=== PATIENT | female | born 1975 | race Caucasian/White ===

== ENCOUNTER 2018-10-13 09:07 | Emergency (ER) | payer MEDICARE, MEDICAID ==
[~2018-10-13] VITALS: Ht 152.4 cm; Wt 66.2 kg
--- OUTSIDE RECORDS SUMMARY | 2018-10-13 09:12 | XMS REPORT | CCD ---
Author Author CLAUDIA PAREDES Organization Unknown Address [address] [place] [address] Care Team Providers Care Latrine Cleaner Name Role Phone ARIAS, BRIDGET DO Attphys ARIAS, BRIDGET DO Prisurg Allergies Allergy Code Allergy Type Reaction Status MEPERIDINE 6754 Drug allergy Active CODEINE 2670 Drug allergy Active Active Medications Medication Code Dose Units Frequency Route Modification Start Date/Time Cipro 500MG Oral Tablet 033811 1 TABLET TWO TIMES A DAY BY MOUTH 02/20/2015 12:41 Prescription Detail 1 TABLET BY MOUTH TWO TIMES A DAY FOR 7 DAYS Problems Problem Code Start Date Resolved Date Status Suicidal ideation 3283615 11/02/2014 Active Intentional overdose of drug 76746341 11/02/2014 Active Procedures Procedure Code Procedure Type Date STREP SCREEN 50201592 SNOMED CT 05/17/2016 INFLUENZA A & B 074492742 SNOMED CT 05/17/2016 Results STREP SCREEN - Collect Date/Time: 05/17/2016 22:46 Test Name Code Test Result Test Units Test Ref Range STREP SCREEN 6556-5 NEGATIVE N/A NORMAL: NEGATIVE INFLUENZA A & B - Collect Date/Time: 05/17/2016 22:45 Test Name Code Test Result Test Units Test Ref Range INFLUENZA A & B 6437-8 NO INFLUENZA A OR B DETECTED N/A Function Status Unknown or Not Available. History of Immunizations Immunization Code Date Tdap 115 09/12/2009 Plan of Treatment Unknown or Not Available. Social History Smoking Status Code Start Date End Date Current every day smoker 994832953 Vital Signs Unknown or Not Available. Function Status Unknown or Not Available. Goals Unknown or Not Available. ASSESSMENTS Unknown or Not Available. Health Concerns Section Unknown or Not Available.
--- OUTSIDE RECORDS SUMMARY | 2018-10-13 09:12 | XMS REPORT | CCD ---
Author Author DAVID RENTERIA Organization Unknown Address [address] [place], [place] [address] Care Team Providers Care Corporate Affairs Manager Name Role Phone JESSICA WANG, ESTEFANIA Levy Attyolanda ESTEFANIA LOPEZ MD Vital Signs Unknown or Not Available. Allergies Allergy Code Allergy Type Reaction Status MEPERIDINE 6754 Drug allergy Active CODEINE 3927 Drug allergy Active Procedures Unknown or Not Available. History of Immunizations Immunization Code Date Tdap 115 09/12/2009 Problems Problem Code Start Date Resolved Date Status Suicidal ideation 5846264 11/02/2014 Active Intentional overdose of drug 38300605 11/02/2014 Active Results Unknown or Not Available. Active Medications Medication Code Dose Units Frequency Route Modification Start Date/Time Ativan 0.5MG Oral Tablet 281209 0.5 MILLIGRAMS DAILY ORAL 11/02/2014 12:44 Benadryl Allergy 25MG Oral Tablet 9699067 25 MILLIGRAMS DAILY ORAL 11/02/2014 12:44 Effexor XR 150MG Oral Capsule, Extended Release 375806 150 MILLIGRAMS DAILY ORAL 11/02/2014 12:44 Ibuprofen 800MG Oral Tablet 008977 800 MILLIGRAMS FOUR TIMES A DAY ORAL 11/02/2014 12:44 Latuda 20MG Oral Tablet 8349917 100 MILLIGRAMS DAILY ORAL 11/02/2014 12:44 Primidone 50MG Oral Tablet 096670 50 MILLIGRAMS TWO TIMES A DAY ORAL 11/02/2014 12:44 Ultram 50MG Oral Tablet 903509 50 MILLIGRAMS NEEDED ORAL 11/02/2014 12:44 Medications Administered During Visit Unknown or Not Available. Encounters Encounter Diagnosis Diagnosis Code Start Date [place] 8471 10/20/2014 Social History Smoking Status Code Start Date End Date Current every day smoker 412367144 Patient Decision Aids Unknown or Not Available. Discharge Instructions You were admitted to [facility] on 10/20/2014 with a principal diagnosis of [place]. You were discharged from [facility] on 10/20/2014. Should you have any questions prior to discharge, please contact a member of your healthcare team. If you have left the hospital and have any questions, please contact your primary care physician. Chief Complaint and Reason For Visit Chief Complaint Date of Onset BACK INJURY Function Status Unknown or Not Available. Referral/Transition of Care Unknown or Not Available.
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
--- OUTSIDE RECORDS SUMMARY | 2018-10-13 09:13 | XMS REPORT ---
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 Active 515441100 Problem Chronic liver failure without hepatic coma K72.10 Active 300123836 ALLERGIES No Information ENCOUNTERS Encounter Location Date Diagnosis [place] [id number] [address] Jan, [facility] [address] [address] Dec, Symptomatic premature menopause E28.310 [facility] [address] [place] [id number] [place] [address] Nov, [facility] [address] [place] [id number] [place] [address] Nov, [facility] [address] [address] Nov, PTSD (post-traumatic stress disorder) F43.10 and Partial blindness H54.7 [facility] [address] [address] Nov, [facility] [address] [address] Oct, [facility] [address] [address] Sep, [facility] [address] [facility] [id number] [place] [address] Sep, Establishing care with new doctor, encounter for Z76.89 ; History of lupus Z87.39 ; Screening cholesterol level Z13.220 ; Chronic liver failure without hepatic coma K72.10 and Environmental allergies Z91.09 [facility] [address] [facility] [id number] [place] [address] August, Encounter for immunization Z23 and Abscess, scalp L02.811 IMMUNIZATIONS No Known Immunizations SOCIAL HISTORY Never Assessed REASON FOR VISIT Requests return call PLAN OF CARE VITAL SIGNS MEDICATIONS Unknown [...]
--- OUTSIDE RECORDS SUMMARY | 2018-10-13 09:13 | XMS REPORT | CCD ---
Author Author ALVARO AGUIAR Organization Unknown Address [address] [place], [place] [address] Care Team Providers Care Narcotics Detective Name Role Phone CATRACHO GALEANA MD Attphys BERTHA KANDICE CORRALES Prisurg Vital Signs Vital Sign Value Unit Date/Time Recent/Initial? Weight Measured 130 lbs 02/18/2015 16:25 Initial VS Height 64 in 02/18/2015 16:25 Initial VS BMI (Body Mass Index) 22.31 kg/m^2 02/18/2015 16:25 Initial VS BSA (Body Surface Area) 1.63 m^2 02/18/2015 16:25 Initial VS BP Systolic 96 mmHg 02/18/2015 16:27 Initial VS BP Diastolic 69 mmHg 02/18/2015 16:27 Initial VS Respiratory Rate 20 bpm 02/18/2015 16:29 Initial VS Heart Rate 71 bpm 02/18/2015 16:29 Initial VS O2 % BldC Oximetry 95 % 02/18/2015 16:29 Initial VS Body Temperature 97.7 degrees 02/18/2015 16:56 Initial VS Weight Measured 136.7 lbs 02/20/2015 05:18 Most Recent VS Height 64 in 02/20/2015 05:18 Most Recent VS BMI (Body Mass Index) 23.46 kg/m^2 02/20/2015 05:18 Most Recent VS BSA (Body Surface Area) 1.67 m^2 02/20/2015 05:18 Most Recent VS BP Systolic 128 mmHg 02/20/2015 12:00 Most Recent VS BP Diastolic 75 mmHg 02/20/2015 12:00 Most Recent VS Respiratory Rate 18 bpm 02/20/2015 12:01 Most Recent VS Heart Rate 87 bpm 02/20/2015 12:01 Most Recent VS O2 % BldC Oximetry 98 % 02/20/2015 12:01 Most Recent VS Body Temperature 97 degrees 02/20/2015 12:01 Most Recent VS Allergies Allergy Code Allergy Type Reaction Status MEPERIDINE 6754 Drug allergy Active CODEINE 2670 Drug allergy Active Procedures Procedure Code Procedure Type Date ^CULTURE URINE IDENTIFICATION 231212521 SNOMED CT 02/18/2015 COMPREHENSIVE METABOLIC PANEL 253120442 SNOMED [address] 02/20/[address] 02/20/[address] 02/19/2015 COMPREHENSIVE METABOLIC PANEL 420514206 SNOMED CT 02/19/[address] 02/19/2015 .THC QUANT UR 620015910 SNOMED CT 02/18/2015 .BENZO QUANT UR 802083095 SNOMED CT 02/18/2015 .BARBITURATE CONFIRM 241514577 SNOMED CT 02/18/2015 .AMP EXPANDED CONF UR 998932674 SNOMED CT 02/18/2015 ^UA WITH MICRO 498242055 SNOMED CT 02/18/2015 CULTURE URINE 803280649 SNOMED CT 02/18/2015 ^CBC W/AUTO DIFF 7554724 SNOMED CT 02/18/[address] 02/18/[address] 02/18/[address] 02/18/[address] 02/18/2015 UA ROUTINE C&S IF IND 217230486 SNOMED CT 02/18/2015 RAPID DRUG SCREEN 408675184 SNOMED CT 02/18/[address] 02/18/2015 COMPREHENSIVE METABOLIC PANEL 402818840 SNOMED CT 02/18/2015 CBC W/ AUTO DIFF (RFLX MAN DIFF IF IND) 9616185 SNOMED CT 02/18/2015 ABG DRAW 63276226 SNOMED CT 02/18/2015 History of Immunizations Immunization Code Date Tdap 115 09/12/2009 Problems Problem Code Start Date Resolved Date Status Suicidal ideation 7968405 11/02/2014 Active Intentional overdose of drug 29700827 11/02/2014 Active Results COMPREHENSIVE METABOLIC PANEL - Collect Date/Time: 02/20/2015 05:05 Test Name Code Test Result Test Units Test Ref Range GLUCOSE 2345-7 79 MG/DL L=70 H=100 SODIUM 2951-2 135 MEQ/L L=135 H=148 POTASSIUM 2823-3 3.6 MEQ/L L=3.5 H=5.3 CHLORIDE 2075-0 112 MEQ/L L=96 H=110 CO2 2028-9 20 MEQ/L L=22 H=29 BUN 3094-0 5 MG/DL L=8 H=22 CREATININE 2160-0 0.6 MG/DL L=0.6 H=1.6 SGOT/AST 1920-8 17 IU/L L=10 H=40 SGPT/ALT 1742-6 13 IU/L L=8 H=54 ALK PHOS 6768-6 40 IU/L L=35 H=115 TOTAL PROTEIN 2885-2 4.7 G/DL L=5.5 H=8.5 ALBUMIN 1751-7 2.8 G/DL L=3.1 H=5.4 TOTAL BILI 1975-2 0.3 MG/DL L=0.0 H=1.5 CALCIUM 67120-8 7.3 MG/DL L=8.2 H=10.6 AGE 39 yrs GFR NonAA 111 GFR AA 135 eGFR >60 N/A eGFR AA* >60 N/A COMPREHENSIVE METABOLIC PANEL - Collect Date/Time: 02/19/2015 05:35 Test Name Code Test Result Test Units Test Ref Range GLUCOSE 2345-7 61 MG/DL L=70 H=100 SODIUM 2951-2 139 MEQ/L L=135 H=148 POTASSIUM 2823-3 3.4 MEQ/L L=3.5 H=5.3 CHLORIDE 2075-0 110 MEQ/L L=96 H=110 CO2 2028-9 23 MEQ/L L=22 H=29 BUN 3094-0 10 MG/DL L=8 H=22 CREATININE 2160-0 0.7 MG/DL L=0.6 H=1.6 SGOT/AST 1920-8 11 IU/L L=10 H=40 SGPT/ALT 1742-6 9 IU/L L=8 H=54 ALK PHOS 6768-6 38 IU/L L=35 H=115 TOTAL PROTEIN 2885-2 5.6 G/DL L=5.5 H=8.5 ALBUMIN 1751-7 3.5 G/DL L=3.1 H=5.4 TOTAL BILI 1975-2 0.2 MG/DL L=0.0 H=1.5 CALCIUM 11747-0 8.2 MG/DL L=8.2 H=10.6 AGE 39 yrs GFR NonAA 93 GFR AA 113 eGFR >60 N/A eGFR AA* >60 N/A COMPREHENSIVE METABOLIC PANEL - Collect Date/Time: 02/18/2015 09:20 Test Name Code Test Result Test Units Test Ref Range GLUCOSE 2345-7 145 MG/DL L=70 H=100 SODIUM 2951-2 138 MEQ/L L=135 H=148 POTASSIUM 2823-3 3.1 MEQ/L L=3.5 H=5.3 CHLORIDE 2075-0 107 MEQ/L L=96 H=110 CO2 2028-9 25 MEQ/L L=22 H=29 BUN 3094-0 6 MG/DL L=8 H=22 CREATININE 2160-0 0.8 MG/DL L=0.6 H=1.6 SGOT/AST 1920-8 13 IU/L L=10 H=40 SGPT/ALT 1742-6 8 IU/L L=8 H=54 ALK PHOS 6768-6 40 IU/L L=35 H=115 TOTAL PROTEIN 2885-2 6.0 G/DL L=5.5 H=8.5 ALBUMIN 1751-7 3.8 G/DL L=3.1 H=5.4 TOTAL BILI 1975-2 0.3 MG/DL L=0.0 H=1.5 CALCIUM 34390-8 8.5 MG/DL L=8.2 H=10.6 AGE 39 yrs GFR NonAA 80 GFR AA 97 eGFR >60 N/A eGFR AA* >60 N/A ACETAMINOPHEN - Collect Date/Time: 02/18/2015 09:20 Test Name Code Test Result Test Units Test Ref Range ACETAMINOPHEN 3298-7 <0.60 UG/ML ALCOHOL - Collect Date/Time: 02/18/2015 09:20 Test Name Code Test Result Test Units Test Ref Range ETHANOL 5640-8 <10 MG/DL RAPID DRUG SCREEN - Collect Date/Time: 02/18/2015 12:05 Test Name Code Test Result Test Units Test Ref Range Cannabinoids (THC) NON-NEGATIVE N/A NEG: < 50 ng/ml Phencyclidine (PCP) NEGATIVE N/A NEG: < 25 ng/ml Cocaine NEGATIVE N/A NEG: < 300 ng/ml Methamphetamine NON-NEGATIVE N/A NEG: < 1000 ng/ml Opiates NEGATIVE N/A NEG: < 300 ng/ml Amphetamine NON-NEGATIVE N/A NEG: < 1000 ng/ml Benzodiazepines NON-NEGATIVE N/A NEG: < 300 ng/ml Tricyclic Antidepres NEGATIVE N/A NEG: < 300 ng/ml Methadone NEGATIVE N/A NEG: < 300 ng/ml Barbiturates NON-NEGATIVE N/A NEG: < 200 ng/ml Oxycodone NEGATIVE N/A NEG: < 100 ng/ml Propoxyphene (PPX) NEGATIVE N/A NEG: < 300 ng/ml SALICYLATE - Collect Date/Time: 02/18/2015 09:20 Test Name Code Test Result Test Units Test Ref Range SALICYLATE 4023-8 <5.0 MG/DL L=0.0 H=45.0 CBC W/ AUTO DIFF (RFLX MAN DIFF IF IND) - Collect Date/Time: 02/18/2015 09:20 Test Name Code Test Result Test Units Test Ref Range WBC 95174-0 4.3 TH/CMM L=4.5 H=10.8 RBC 789-8 4.08 ML/CMM L=4.20 H=5.40 HGB 718-7 13.1 G/DL L=12.0 H=16.0 HCT 4544-3 38.3 % L=37.0 H=47.0 MCV 94 FL L=81 H=99 MCH 32.1 PG L=27.0 H=33.0 MCHC 34.2 G/DL L=31.0 H=36.0 RDW SD 47 FL L=36 H=50 RDW CV 13.4 % L=0.0 H=14.8 MPV 9.3 FL L=9.3 H=12.5 PLT 777-3 332 TH/CMM L=130 H=440 NRBC# 0.00 TH/CMM L=0.00 H=0.00 NRBC% 0.0 /100WBC L=0.0 H=2.0 %NEUT 56.1 % %LYMP 33.1 % %MONO 7.0 % %EOS 3.3 % %BASO 0.5 % #NEUT 2.41 TH/CMM L=2.10 H=8.20 #LYMP 1.42 TH/CMM L=0.90 H=5.20 #MONO 0.30 TH/CMM L=0.16 H=1.00 #EOS 0.14 TH/CMM L=0.00 H=0.80 #BASO 0.02 TH/CMM L=0.00 H=0.20 MANUAL DIFF NOT IND N/A HEMOGRAM - Collect Date/Time: 02/20/2015 05:05 Test Name Code Test Result Test Units Test Ref Range WBC 67149-5 7.0 TH/CMM L=4.5 H=10.8 RBC 789-8 3.44 ML/CMM L=4.20 H=5.40 HGB 718-7 11.0 G/DL L=12.0 H=16.0 HCT 4544-3 32.9 % L=37.0 H=47.0 MCV 96 FL L=81 H=99 MCH 32.0 PG L=27.0 H=33.0 MCHC 33.4 G/DL L=31.0 H=36.0 RDW SD 47 FL L=36 H=50 RDW CV 13.4 % L=0.0 H=14.8 MPV 9.7 FL L=9.3 H=12.5 PLT 777-3 274 TH/CMM L=130 H=440 NRBC# 0.00 TH/CMM L=0.00 H=0.00 NRBC% 0.0 /100WBC L=0.0 H=2.0 HEMOGRAM - Collect Date/Time: 02/19/2015 05:35 Test Name Code Test Result Test Units Test Ref Range WBC 43582-5 5.7 TH/CMM L=4.5 H=10.8 RBC 789-8 3.92 ML/CMM L=4.20 H=5.40 HGB 718-7 12.4 G/DL L=12.0 H=16.0 HCT 4544-3 37.2 % L=37.0 H=47.0 MCV 95 FL L=81 H=99 MCH 31.6 PG L=27.0 H=33.0 MCHC 33.3 G/DL L=31.0 H=36.0 RDW SD 47 FL L=36 H=50 RDW CV 13.5 % L=0.0 H=14.8 MPV 9.2 FL L=9.3 H=12.5 PLT 777-3 312 TH/CMM L=130 H=440 NRBC# 0.00 TH/CMM L=0.00 H=0.00 NRBC% 0.0 /100WBC L=0.0 H=2.0 UA ROUTINE C&S IF IND - Collect Date/Time: 02/18/2015 12:00 Test Name Code Test Result Test Units Test Ref Range COLOR YELLOW N/A NL: YELLOW APPEARANCE HAZY N/A NL: CLEAR SPEC GRAV 1.025 N/A NL: 1.002 - 1.022 pH 6.0 N/A NL: 5 - 9 PROTEIN TRACE N/A NL: NEGATIVE mg/dl GLUCOSE NEGATIVE N/A NL: NEGATIVE mg/dl KETONE NEGATIVE N/A NL: NEGATIVE mg/dl BILIRUBIN NEGATIVE N/A NL: NEGATIVE BLOOD NEGATIVE N/A NL: NEGATIVE NITRITE POSITIVE N/A NL: NEGATIVE LEUK SCREEN NEGATIVE N/A NL: NEGATIVE MICRO INDICATED? SEE BELOW N/A WBC/HPF 5-10 N/A NL: NEGATIVE RBC/HPF 0-5 N/A NL: NEGATIVE CASTS/LPF NEGATIVE N/A NL: NEGATIVE CRYSTALS NEGATIVE N/A NL: NEGATIVE MUCOUS THRDS 2++ N/A NL: NEGATIVE BACTERIA 3+++ N/A NL: NEGATIVE EPITH CELLS FEW SQUAMOUS N/A NL: NEGATIVE TRICHOMONAS NEGATIVE N/A NL: NEGATIVE YEAST NEGATIVE N/A NL: NEGATIVE CULT SET UP? YES N/A TEST - Collect Date/Time: 02/18/2015 09:20 Test Name Code Test Result Test Units Test Ref Range TEST 2117- NEGATIVE N/A ABG - Collect Date/Time: 02/18/2015 09:47 Test Name Code Test Result Test Units Test Ref Range PH 7.40 L=7.35 H=7.45 PCO2 37 mmHG L=35 H=45 PO2 82 mmHG L=80 H=100 HCO3 23 mmol/L L=22 H=28 TCO2 20 mmol/L L=18 H=31 O2SAT 96 % L=80 H=100 SITE RIGHT RADIAL N/A FIO2 ROOM AIR N/A BE -1.5 N/A L=-2.5 H=2.5 MAGNESIUM - Collect Date/Time: 02/19/2015 05:35 Test Name Code Test Result Test Units Test Ref Range MAGNESIUM 04741-8 2.2 MG/DL L=1.7 H=2.8 Active Medications Medication Code Dose Units Frequency Route Modification Start Date/Time Cipro 500MG Oral Tablet 519498 1 TABLET TWO TIMES A DAY BY MOUTH 02/20/2015 12:41 Prescription Detail 1 TABLET BY MOUTH TWO TIMES A DAY FOR 7 DAYS Medications Administered During Visit Medication Dose Units Frequency Route Date/Time of Last Dose NS 1000 ML IV [PREDEFINED] (7983) CONT IV IV 02/18/2015 16:38 POTASSIUM CHL [K DUR] TABLET: 20 MEQ 20 MEQ X1 PO 02/19/2015 08:51 NS 1000 ML IV [PREDEFINED] (7983) CONT IV IV 02/20/2015 06:30 ROCEPHIN IV [PREDEFINED]: 1GM IV Q 12 HR Q24H IVPB 02/19/2015 15:43 NS 1000 ML IV [PREDEFINED] (7983) X1 IV 02/19/2015 14:35 NS 1000 ML IV [PREDEFINED] (7983) X1 IV 02/19/2015 17:48 Encounters Encounter Diagnosis Diagnosis Code Start Date Poisoning by other antipsychotics and neuroleptics, intentional self-harm, initial encounter [id number] 02/18/2015 Social History Smoking Status Code Start Date End Date Current every day smoker 888473425 Patient Decision Aids Patient Decision Aid Adult Overdose Depression Poison Proofing Your Home Suicide Prevention for Adults Discharge Instructions You were admitted to [facility] on 02/18/2015 with a principal diagnosis of Poisoning by other antipsychotics and neuroleptics, intentional self-harm, initial encounter. You were discharged from [facility] on 02/20/2015. Should you have any questions prior to discharge, please contact a member of your healthcare team. If you have left the hospital and have any questions, please contact your primary care physician. HOME DIET: Regular. CONDITION AT DISMISSAL Stable. HOME MEDICATION INSTRUCTIONS: DON'T continue home meds, DR GALEANA TO EVALUATE MONDAY AM. PSYCHIATRIST TO EVALUATE ON February. HOME MEDS RETURNED TO PATIENT: HOME MEDS TAKEN BY SKIL WORKER/S.O. ON ADMISSION. ACTIVITY INSTRUCTIONS(list limitations): Activity as Tolerated. NEW PRESCRIPTS GIVEN TO PATIENT? Yes, for what?, CIPRO 500 MG BY MOUTH, TWICE A DAY, FOR 7 DAYS. FOLLOW UP CARE - SEE YOUR PHYSICIAN: You have appointment WITH DR GALEANA ON MondayFebruary AT 11:30 AM. You have appointment THERAPIST, JOSE HART, ON Feb AT 11:00 AM You have appointment THERAPIST, JOSE HART, MonFeb AT 11:00 AM. You have appointment WITH PSYCHIATRIST, DR VIDAL, MondayFeb AT 9:20 AM. FOLLOW-UP OUTPATIENT SERVICES: MENTAL HEALTH, INDIVIDUAL THERAPY. PRIMARY CARE PHYSICIAN OR PRACTITIONER: Catracho Galeana MD, /[phone]. CALL YOUR PHYSICIAN IF YOU EXPERIENCE: ANY THOUGHTS OF SUICIDE OR SELF HARM. NATIONAL SUICIDE PREVENTION HOTLINE NUMBER: PERSONAL ITEMS RETURNED: Yes. BRING DISCHARGE INST TO NEXT OFFICE VISIT Yes. DISCHARGE INSTRUCTIONS GIVEN TO: Patient, Paper Folder. VOICES UNDERSTANDING OF INSTRUCTIONS: Yes. INSTRUCTIONS GIVEN BY:(TYPE IN NAME AND DATE) OFELIA FLOREZ RN 02/20/15 SMOKING CESSATION: Smoking and second hand smoke is harmful, to your health.. Smoking has been linked to cancer, cardiac disease, COPD, and asthma.. For more information you can call:, 6-843-NLU-STOP, or 8-441-[facility].. A pamphlet on smoking was given to you, at admission.. CHIEF COMPLAINT: PATIENT PRESENTS TO ER VIA EMS WITH OVERDOSE ON ATIVAN, EFFEXOR AND LATUDA. Chief Complaint and Reason For Visit Chief Complaint Date of Onset OVERDOSE BIPOLAR DEPRESSION Function Status Unknown or Not Available. Plan of Care Unknown or Not Available. Referral/Transition of Care Unknown or Not Available.
--- OUTSIDE RECORDS SUMMARY | 2018-10-13 09:13 | XMS REPORT ---
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 Active 224050707 Problem Chronic liver failure without hepatic coma K72.10 Active 708138302 ALLERGIES Substance Reaction Event Type Date Status Demerol Unknown Drug Allergy August, Active Codeine Sulfate Unknown Drug Allergy August, Active SOCIAL HISTORY Never Assessed PLAN OF CARE VITAL SIGNS Height 60 in 2016-09-14 Weight 144.8 lbs 2016-09-14 Temperature 99.4 degrees Fahrenheit 2016-09-14 Heart Rate 76 bpm 2016-09-14 Respiratory Rate 22 2016-09-14 BMI 28.28 kg/m2 2016-09-14 Blood pressure systolic 120 mmHg 2016-09-14 Blood pressure diastolic 68 mmHg 2016-09-14 MEDICATIONS Medication Instructions Dosage Frequency Start Date End Date Duration Status Benadryl Allergy 25 MG Orally every 8 hrs 1 tablet as needed 8h Active Bactrim DS 800-160 MG Orally Twice a day 1 tablet 12h August, Sep, 10 day(s) Active Tylenol 325 MG Orally every 6 hrs 2 tablets as needed 6h Active RESULTS No Results PROCEDURES Procedure Date Ordered Result Body Site [facility] VISIT ESTABLISHED PATIENT September 14, 2016 SINGLE IMMUNIZATION ADMIN September 14, 2016 TDAP (BOOSTRIX) September 14, 2016 IMMUNIZATIONS Vaccine Route Administration Date Status TDAP (BOOSTRIX) IM Intramuscular September 14, 2016 Administered MEDICAL (GENERAL) HISTORY Type Description Date Medical [...] and in the hospital for 5 months 2006
--- OUTSIDE RECORDS SUMMARY | 2018-10-13 09:13 | XMS REPORT ---
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 Active 154741645 Problem Chronic liver failure without hepatic coma K72.10 Active 751450055 ALLERGIES No Information ENCOUNTERS Encounter Location Date Diagnosis [place] [address] [address] Jan, [facility] [address] [address] Dec, Symptomatic premature menopause E28.310 [facility] [address] [place] [id number] [place] [address] Nov, [facility] [address] [place] [place] [id number] [place] [address] Nov, [facility] [address] [address] Nov, PTSD (post-traumatic stress disorder) F43.10 and Partial blindness H54.7 [facility] [address] [address] Nov, [facility] [address] [address] Oct, [facility] [address] [address] Sep, [facility] [address] [facility] [id number] [place] [address] Sep, Establishing care with new doctor, encounter for Z76.89 ; History of lupus Z87.39 ; Screening cholesterol level Z13.220 ; Chronic liver failure without hepatic coma K72.10 and Environmental allergies Z91.09 [facility] [address] [facility] [id number] [place] [address] August, Encounter for immunization Z23 and Abscess, scalp L02.811 IMMUNIZATIONS No Known Immunizations SOCIAL HISTORY Never Assessed REASON FOR VISIT medication PLAN OF CARE VITAL SIGNS MEDICATIONS Medication Instructions Dosage Frequency Start Date End Date Duration Status Chantix 1 MG Orally Twice a day 1 tablet 12h 06 Dec, 2016 Active RESULTS No Results PROCEDURES No Known procedures [...]
--- OUTSIDE RECORDS SUMMARY | 2018-10-13 09:13 | XMS REPORT ---
Author Author GABRIEL ROSALES [facility] Address [address] [place] [address] Care Team Providers Care Shipper Name Role Phone GABRIEL ROSALES Unavailable PROBLEMS Type Condition ICD9-CM Code WCB67-NQ Code Onset Dates Condition Status SNOMED Code Problem Symptomatic premature menopause E28.310 Active 839173168 Problem PTSD (post-traumatic stress disorder) F43.10 Active 87203240 Problem Environmental allergies Z91.09 Active 462904561 Problem Partial blindness H54.7 Active 831378393 Problem Chronic liver failure without hepatic coma K72.10 Active 233299347 ALLERGIES No Information ENCOUNTERS Encounter Location Date Diagnosis [facility] [address] [address] Jan, [facility] [address] [place] [id number] [place] [address] Dec, Symptomatic premature menopause E28.310 [facility] [address] [place] [id number] [place] [address] Nov, [facility] [address] [place] [id number] [place] [address] Nov, [facility] [address] [address] Nov, PTSD (post-traumatic stress disorder) F43.10 and Partial blindness H54.7 [facility] [address] [address] Nov, [facility] [address] [place] [id number] [place] [address] Oct, [facility] [address] [address] Sep, [facility] [address] [facility] [id number] [place] [address] Sep, Establishing care with new doctor, encounter for Z76.89 ; History of lupus Z87.39 ; Screening cholesterol level Z13.220 ; Chronic liver failure without hepatic coma K72.10 and Environmental allergies Z91.09 [facility] [address] [facility] [id number] [place] [address] August, Encounter for immunization Z23 and Abscess, scalp L02.811 IMMUNIZATIONS No Known Immunizations SOCIAL HISTORY Never Assessed REASON FOR VISIT Medical Testing supplies PLAN OF CARE VITAL SIGNS MEDICATIONS Unknown [...]
--- OUTSIDE RECORDS SUMMARY | 2018-10-13 09:13 | XMS REPORT ---
Author Author GISSEL Broussard Organization [facility] Address [address] [place] [address] Care Team Providers Care Level Vial Grinder Name Role Phone joseADALBERTO GISSEL Unavailable PROBLEMS Type Condition ICD9-CM Code XNA65-LZ Code Onset Dates Condition Status SNOMED Code Problem Symptomatic premature menopause E28.310 Active 929277854 Problem PTSD (post-traumatic stress disorder) F43.10 Active 20613352 Problem Environmental allergies Z91.09 Active 049821723 Problem Partial blindness H54.7 Active 859231226 Problem Chronic liver failure without hepatic coma K72.10 Active 026974209 ALLERGIES No Information ENCOUNTERS Encounter Location Date Diagnosis [place] [address] [address] Jan, [facility] [address] [address] Dec, Symptomatic premature menopause E28.310 [facility] [address] [place] [id number] [place] [address] Nov, [facility] [address] [place] [id number] [place] [address] Nov, [facility] [address] [address] Nov, PTSD (post-traumatic stress disorder) F43.10 and Partial blindness H54.7 [facility] [address] [address] Nov, [facility] [address] [address] Oct, [facility] [address] [address] Sep, [facility] [address] [facility] [id number] [place] [address] Sep, Establishing care with new doctor, encounter for Z76.89 ; History of lupus Z87.39 ; Screening cholesterol level Z13.220 ; Chronic liver failure without hepatic coma K72.10 and Environmental allergies Z91.09 [facility] [address] [facility] [id number] [place] [address] August, Encounter for immunization Z23 and Abscess, [...]
--- OUTSIDE RECORDS SUMMARY | 2018-10-13 09:13 | XMS REPORT ---
Author Author GABRIEL ROSALES [facility] Address [address] [place] [address] Care Team Providers Care Churn Driller Name Role Phone GABRIEL ROSALES Unavailable PROBLEMS Type Condition ICD9-CM Code LET31-FD Code Onset Dates Condition Status SNOMED Code Problem Symptomatic premature menopause E28.310 Active 973539269 Problem PTSD (post-traumatic stress disorder) F43.10 Active 01929421 Problem Environmental allergies Z91.09 Active 578934798 Problem Partial blindness H54.7 Active 688874488 Problem Chronic liver failure without hepatic coma K72.10 Active 631490421 ALLERGIES Substance Reaction Event Type Date Status Demerol Unknown Drug Allergy Dec, Active Codeine Sulfate Unknown Drug Allergy Dec, Active ENCOUNTERS Encounter Location Date Diagnosis [facility] [address] [place] [id number] [place] [address] Jan, [facility] [address] [address] Dec, Symptomatic premature menopause E28.310 [facility] [address] [place] [id number] [place] [address] Nov, [facility] [address] [place] [id number] [place] [address] Nov, [facility] [address] [place] [id number] [place] [address] Nov, PTSD (post-traumatic stress disorder) F43.10 and Partial blindness H54.7 [facility] [address] [address] Nov, [facility] [address] [place] [id number] [place] [address] Oct, [facility] [address] [facility] [id number] [place] [address] Sep, [facility] [address] [facility] [id number] [address] Sep, Establishing care with new doctor, encounter for Z76.89 ; History of lupus Z87.39 ; Screening cholesterol level Z13.220 ; Chronic liver failure without hepatic coma K72.10 and Environmental allergies Z91.09 [facility] [address] [facility] [id number] [address] August, Encounter for immunization Z23 and Abscess, scalp L02.811 IMMUNIZATIONS No Known Immunizations SOCIAL HISTORY Never Assessed REASON FOR VISIT Vaginal bleeding, irregular--tcuppettRN, Having a period that lasts only one day x 4-5 months PLAN OF CARE Activity Details Follow Up prn Reason: VITAL SIGNS Height 62.25 in 2017-01-09 Weight 145.4 lbs 2017-01-09 Temperature 98.4 degrees Fahrenheit 2017-01-09 Heart Rate 70 bpm 2017-01-09 Respiratory Rate 18 2017-01-09 BMI 26.38 kg/m2 2017-01-09 Blood pressure systolic 122 mmHg 2017-01-09 Blood pressure diastolic 78 mmHg 2017-01-09 MEDICATIONS Medication Instructions Dosage Frequency Start Date End Date Duration Status Remeron 30 MG 1 tablet at bedtime 24h Active BuSpar 15 mg by oral route 3 times a day 1 capsule 8h Active Chantix 1 MG Orally Twice a day 1 tablet 12h 06 Dec, 2016 Active Prazosin HCl 2 MG Orally Once a day 2 capsule at bedtime 24h Active RESULTS Name Result Date Reference Range PROLACTIN 2017-01-09 Prolactin 7.4 4.8-23.3 THYROID ANALYZER 2017-01-09 TSH 1.230 0.450-4.500 FSH, SERUM 2017-01-09 FSH 3.5 PROCEDURES Procedure Date Ordered Result Body Site LAB NOT BILLED BY [facility] Jan 09, 2017 [facility] VISIT ESTABLISHED PATIENT Jan 09, 2017 SOFÍA DOUGHERTY* Jan 09, 2017 INSTRUCTIONS MEDICATIONS ADMINISTERED No Known Medications MEDICAL [...]
--- OUTSIDE RECORDS SUMMARY | 2018-10-13 09:13 | XMS REPORT ---
Author Author GISSEL Broussard Organization [facility] Address [address] [place] [address] Care Team Providers Care Manufacturing Test Engineer Name Role Phone joseADALBERTO GISSEL Unavailable PROBLEMS Type Condition ICD9-CM Code VOT60-KF Code Onset Dates Condition Status SNOMED Code Problem Symptomatic premature menopause E28.310 Active 678669987 Problem PTSD (post-traumatic stress disorder) F43.10 Active 54773469 Problem Environmental allergies Z91.09 Active 567226972 Problem Partial blindness H54.7 Active 820919389 Problem Chronic liver failure without hepatic coma K72.10 Active 050295777 ALLERGIES No Information ENCOUNTERS Encounter Location Date Diagnosis [place] [address] [address] Jan, [facility] [address] [address] Dec, Symptomatic premature menopause E28.310 [facility] [address] [place] [id number] [place] [address] Nov, [facility] [address] [place] [id number] [place] [address] Nov, [facility] [address] [address] Nov, PTSD (post-traumatic stress disorder) F43.10 and Partial blindness H54.7 [facility] [address] [address] Nov, [facility] [address] [address] Oct, [facility] [address] [address] Sep, [facility] [address] [facility] [id number] [place] [address] Sep, Establishing care with new doctor, encounter for Z76.89 ; History of lupus Z87.39 ; Screening cholesterol level Z13.220 ; Chronic liver failure without hepatic coma K72.10 and Environmental allergies Z91.09 [facility] [address] [facility] [id number] [place] [address] August, Encounter for immunization Z23 and Abscess, scalp L02.811 IMMUNIZATIONS No Known Immunizations SOCIAL HISTORY Never Assessed REASON FOR VISIT order- FYI PLAN OF CARE VITAL SIGNS MEDICATIONS Unknown [...]
--- OUTSIDE RECORDS SUMMARY | 2018-10-13 09:13 | XMS REPORT ---
Author Author GISSEL Broussard Organization [facility] Address [address] [place] [address] Care Team Providers Care Marketing Content Specialist Name Role Phone GISSEL Broussard Unavailable PROBLEMS Type Condition ICD9-CM Code VRO40-HC Code Onset Dates Condition Status SNOMED Code Problem Symptomatic premature menopause E28.310 Active 374223014 Problem PTSD (post-traumatic stress disorder) F43.10 Active 75443039 Problem Environmental allergies Z91.09 Active 231318315 Problem Partial blindness H54.7 Active 172555627 Problem Chronic liver failure without hepatic coma K72.10 Active 054727253 ALLERGIES Substance Reaction Event Type Date Status Demerol Unknown Drug Allergy Sep, Active Codeine Sulfate Unknown Drug Allergy Sep, Active ENCOUNTERS Encounter Location Date Diagnosis [facility] [address] [address] Jan, [facility] [address] [address] Dec, Symptomatic premature menopause E28.310 [facility] [address] [place] [id number] [place] [address] Nov, [facility] [address] [place] [id number] [place] [address] Nov, [facility] [address] [address] Nov, PTSD (post-traumatic stress disorder) F43.10 and Partial blindness H54.7 [facility] [address] [address] Nov, [facility] [address] [address] Oct, [facility] [address] [facility] [id number] [place] [address] Sep, [facility] [address] [facility] [id number] [place] [address] Sep, Establishing care with new doctor, encounter for Z76.89 ; History of lupus Z87.39 ; Screening cholesterol level Z13.220 ; Chronic liver failure without hepatic coma K72.10 and Environmental allergies Z91.09 [facility] [address] [facility] [id number] [place] [address] August, Encounter for immunization Z23 and Abscess, scalp L02.811 IMMUNIZATIONS No Known Immunizations SOCIAL HISTORY Never Assessed REASON FOR VISIT Establish Care, PT moved to [facility] a month ago and currently lives in a domestic v iolence assisted, She has liver malfunctions and was in a kaleb, also has lupus- S vinicio BRENNAN PLAN OF CARE Activity Details Follow Up 4 Weeks Reason:lupus and liver issues VITAL SIGNS Height 62.25 in 2016-10-06 Weight 126.7 lbs 2016-10-06 Temperature 98.1 degrees Fahrenheit 2016-10-06 Heart Rate 82 bpm 2016-10-06 Respiratory Rate 20 2016-10-06 BMI 22.99 kg/m2 2016-10-06 Blood pressure systolic 128 mmHg 2016-10-06 Blood pressure diastolic 76 mmHg 2016-10-06 MEDICATIONS Medication Instructions Dosage Frequency Start Date End Date Duration Status Zyrtec Allergy Active RESULTS Name Result Date Reference Range LUPUS PROFILE B 2016-10-06 Complement C4, Serum 20 14-44 Complement C3, Serum 116 82-167 Anti-DNA (DS) Ab Qn 1 0-9 Antichromatin Antibodies <0.2 0.0-0.9 LETICIA Direct Negative Negative CBC 2016-10-06 WBC 7.4 3.4-10.8 RBC 3.99 3.77-5.28 Hemoglobin 12.6 11.1-15.9 Hematocrit 38.1 34.0-46.6 MCV 96 79-97 MCH 31.6 26.6-33.0 MCHC 33.1 31.5-35.7 RDW 13.5 12.3-15.4 Platelets 440 150-379 Neutrophils 52 Lymphs 38 Monocytes 7 Eos 2 Basos 0 Neutrophils (Absolute) 3.8 1.4-7.0 Lymphs (Absolute) 2.8 0.7-3.1 Monocytes(Absolute) 0.6 0.1-0.9 Eos (Absolute) 0.2 0.0-0.4 Baso (Absolute) 0.0 0.0-0.2 Immature Granulocytes 1 Immature Grans (Abs) 0.0 0.0-0.1 LIPID PANEL 2016-10-06 Cholesterol, Total 206 100-199 Triglycerides 66 0-149 HDL Cholesterol 70 >39 VLDL Cholesterol Homero 13 5-40 LDL Cholesterol Calc 123 0-99 CMP 2016-10-06 Glucose, Serum 75 65-99 BUN 17 6-24 Creatinine, Serum 0.81 0.57-1.00 eGFR If NonAfricn Am 91 >59 eGFR If Africn Am 105 >59 BUN/Creatinine Ratio 21 9-23 Sodium, Serum 140 134-144 Potassium, Serum 4.2 3.5-5.2 Chloride, Serum 102 96-106 Carbon Dioxide, Total 22 18-29 Calcium, Serum 8.9 8.7-10.2 Protein, Total, Serum 6.7 6.0-8.5 Albumin, Serum 4.1 3.5-5.5 Globulin, Total 2.6 1.5-4.5 A/G Ratio 1.6 1.2-2.2 Bilirubin, Total <0.2 0.0-1.2 Alkaline Phosphatase, S 56 39-117 AST (SGOT) 17 0-40 ALT (SGPT) 27 0-32 PROCEDURES Procedure Date Ordered Result Body Site LAB [facility] October 06, 2016 LUPUS ACTIVITY PANEL (29223 X 2) October 06, 2016 [facility] VISIT ESTABLISHED PATIENT October 06, 2016 VENIPUNCT, ROUTINE* October 06, 2016 INSTRUCTIONS MEDICATIONS ADMINISTERED No Known Medications MEDICAL [...]
--- OUTSIDE RECORDS SUMMARY | 2018-10-13 09:14 | XMS REPORT | Continuity of Care Document ---
Author Organization Unknown Address Unknown Allergies There is no data. Medications There is no data. Problems There is no data. Procedures There is no data. Results Test Result Range CBC With Differential/Platelet - 10/06/16 14:34 WBC 7.4 x10E3/uL 3.4-10.8 RBC 3.99 x10E6/uL 3.77-5.28 Hemoglobin 12.6 g/dL 11.1-15.9 Hematocrit 38.1 % 34.0-46.6 MCV 96 fL 79-97 MCH 31.6 pg 26.6-33.0 MCHC 33.1 g/dL 31.5-35.7 RDW 13.5 % 12.3-15.4 Platelets 440 x10E3/uL 150-379 Neutrophils 52 % Lymphs 38 % Monocytes 7 % Eos 2 % Basos 0 % Neutrophils (Absolute) 3.8 x10E3/uL 1.4-7.0 Lymphs (Absolute) 2.8 x10E3/uL 0.7-3.1 Monocytes(Absolute) 0.6 x10E3/uL 0.1-0.9 Eos (Absolute) 0.2 x10E3/uL 0.0-0.4 Baso (Absolute) 0.0 x10E3/uL 0.0-0.2 Immature Granulocytes 1 % Immature Grans (Abs) 0.0 x10E3/uL 0.0-0.1 Comp. Metabolic Panel (14) - 10/06/16 14:34 Glucose, Serum 75 mg/dL 65-99 BUN 17 mg/dL 6-24 Creatinine, Serum 0.81 mg/dL 0.57-1.00 eGFR If NonAfricn Am 91 mL/min/1.73 >59 eGFR If Africn Am 105 mL/min/1.73 >59 BUN/Creatinine Ratio 21 9-23 Sodium, Serum 140 mmol/L 134-144 Potassium, Serum 4.2 mmol/L 3.5-5.2 Chloride, Serum 102 mmol/L 96-106 Carbon Dioxide, Total 22 mmol/L 18-29 Calcium, Serum 8.9 mg/dL 8.7-10.2 Protein, Total, Serum 6.7 g/dL 6.0-8.5 Albumin, Serum 4.1 g/dL 3.5-5.5 Globulin, Total 2.6 g/dL 1.5-4.5 A/G Ratio 1.6 1.2-2.2 Bilirubin, Total <0.2 mg/dL 0.0-1.2 Alkaline Phosphatase, S 56 IU/L 39-117 AST (SGOT) 17 IU/L 0-40 ALT (SGPT) 27 IU/L 0-32 Lipid Panel - 10/06/16 14:34 Cholesterol, Total 206 mg/dL 100-199 Triglycerides 66 mg/dL 0-149 HDL Cholesterol 70 mg/dL >39 VLDL Cholesterol Homero 13 mg/dL 5-40 LDL Cholesterol Calc 123 mg/dL 0-99 Systemic Lupus Profile B - 10/06/16 14:34 Anti-DNA (DS) Ab Qn 1 IU/mL 0-9 LETICIA Direct Negative Negative Antichromatin Antibodies <0.2 AI 0.0-0.9 Complement C4, Serum 20 mg/dL 14-44 Complement C3, Serum 116 mg/dL 82-167 FSH, Serum - 01/09/17 15:34 FSH 3.5 mIU/mL Prolactin - 01/09/17 15:34 Prolactin 7.4 ng/mL 4.8-23.3 Thyroid Carter Profile - 01/09/17 15:34 TSH 1.230 uIU/mL 0.450-4.500 PROLACTIN - 01/09/17 15:34 Prolactin 7.4 ng/mL 4.8-23.3 THYROID ANALYZER - 01/09/17 15:34 TSH 1.230 uIU/mL 0.450-4.500 FSH, SERUM - 01/09/17 15:34 FSH 3.5 mIU/mL NRG Encounters ACCT No. Visit Date/Time Discharge Status Pt. Type Provider Facility Loc./Unit Complaint [id number] 06/13/2015 11:41:39 06/13/2015 23:59:59 CLS Outpatient Hina Deng [id number] 05/06/2015 11:57:30 05/06/2015 23:59:59 CLS Outpatient Beth Pruitt [id number] 01/12/2015 18:44:42 01/12/2015 23:59:59 CLS Outpatient Hina Deng [id number] 03/05/2014 11:26:05 03/05/2014 23:59:59 CLS Outpatient Horace Buhs [id number] 01/10/2017 12:08:00 Document Registration [id number] 01/09/2017 15:00:00 01/09/2017 23:59:59 CLS Outpatient GISSEL CAVANAUGH [facility] [id number] 01/09/2017 15:00:00 Document Registration [id number] 10/07/2016 14:10:00 Document Registration
[2018-10-13] MEDS ORDERED: BUSPIRONE 15 MG (09:22)
[2018-10-13] MEDS ORDERED: PRAZOSIN 2 MG (09:22)
[2018-10-13] MEDS ORDERED: TRAZODONE 50MG TABLETS (09:22)
[2018-10-13] MEDS ORDERED: DESVENLAFAXINE (09:22)
[2018-10-13] MEDS ORDERED: KETOROLAC 60 MG/2 ML VIAL IM STA (11:23)
[2018-10-13] MEDS ORDERED: AMOXICILLIN 500 MG (POLYMOX) CAP PO STA (11:23)
[2018-10-13] MEDS ORDERED: HURRICAINE EXT TUBE (BENZOCAINE) ONE (11:29)
[2018-10-13] MEDS ORDERED: HYDROcodone/APAP 7.5 MG/325 MG (LORTAB, LORCET PLUS) TABLET PO ONE (11:30)
[2018-10-13] MEDS ORDERED: LIDOCAINE 2% VISCOUS 15 ML UDC PO ONE (11:30)
--- NOTE | 2018-10-13 11:37 | ED EENT ---
History of Present Illness General Chief Complaint: Dental Problems/Pain Stated Complaint: DENTAL PAIN Nursing Triage Note: PT AMB TO [facility] WITH COMPLAINT OF RIGHT SIDED FACIAL SWELLING AND BROKEN TOOTH. STATES SHE BROKE A TOOTH LAST WEEK AND HAS APPT FOR DENTIST ON MONDAY. STATES SHE STARTED SWELLING YESTERDAY AND WAS TOLD BY DENTIST TO COME TO ER IF WORSENS. Source: patient Exam Limitations: no limitations History of Present Illness Date Seen by Provider: Oct 13, 2018 Time Seen by Provider: 11:07 Initial Comments Here with complaint of right lower jaw pain posterior or she has a broken tooth on the first molar. She broke the tooth last week. She does have a dental appoi ntment next week. Noted swelling over the last 24-48 hours with markedly increasing pain. She states Tylenol and ibuprofen are not helping. She is concerned about infection. Timing/Duration: gradual Severity: moderate Prearrival Treatment: over the counter meds Associated Symptoms: facial pain/swelling; No sore throat; tooth pain Allergies and Home Medications Allergies Coded Allergies: No Known Drug Allergies (Unverified , 10/13/18) Patient Home Medication List Home Medication List Reviewed: Yes Review of Systems Review of Systems Constitutional: see HPI; No chills, No fever Eyes: No Symptoms Reported Ears: No Symptoms Reported Nose: no symptoms reported Mouth: pain, swelling Throat: no symptoms reported Respiratory: no symptoms reported Cardiovascular: no symptoms reported Skin: see HPI, change in color, lumps Past Pmjuzcz-Koaqqz-Xgvgxt Hx Past Med/Social Hx: Reviewed Nursing Past Med/Soc Hx Patient Social History Alcohol Use: Occasionally Uses Recreational Drug Use: No Smoking Status: Current Everyday Smoker Type Used: Cigarettes Recent Foreign Travel: No Contact w/Someone Who Travel: No Recent Infectious Disease Expo: No Recent Hopitalizations: No Immunizations Up To Date Tetanus Booster (TDap): Unknown Seasonal Allergies Seasonal Allergies: No Past Medical History Surgeries: Yes (CERVIX) Appendectomy, Gallbladder Respiratory: No Cardiac: No Neurological: No Genitourinary: No Gastrointestinal: No Musculoskeletal: No Endocrine: No HEENT: No Cancer: No Psychosocial: Yes Anxiety, PTSD, Depression Integumentary: No Family Medical History Reviewed Nursing Family Hx No Pertinent Family Hx Physical Exam Vital Signs Vital Signs - First Documented 10/13/18 09:15 Temp 96.0 Pulse 85 Resp 17 B/P (MAP) 142/87 (105) Pulse Ox 97 O2 Delivery Room Air Height, Weight, BMI Height: 5'0" Weight: 146lbs. oz. 66.854444hd; BMI Method:Stated General Appearance: WD/WN, no apparent distress Nose: normal inspection; No active bleeding, No discharge Mouth/Throat: pharynx normal, dental tenderness, mandibular swelling, other (pressure tooth to the first molar right lower and dental carry to the second molar. Dental tenderness as well as tenderness to the gum surrounding that area with redness.) Neck: full range of motion, supple Cardiovascular: regular rate, rhythm, no murmur Respiratory: lungs clear, normal breath sounds Neurologic/Psychiatric: alert, oriented x 3 Skin: warm/dry, other (swelling to the right lower jaw posterior aspect.) Progress/Results/Core Measures Results/Orders My Orders Orders - LUMA POTTER MD Toradol 60 Mg Im (10/13/18 11:23) Lidocaine 2% Viscous 15 Ml (Xylocaine Vi (10/13/18 11:30) Hydrocodone/Apap 7.5/325 Tab (Lortab 7. (10/13/18 11:30) Amoxicillin 1000mg Po (10/13/18 11:23) Vital Signs/I&O 10/13/18 09:15 Temp 96.0 Pulse 85 Resp 17 B/P (MAP) 142/87 (105) Pulse Ox 97 O2 Delivery Room Air Blood Pressure Mean: 105 Progress Progress Note : Progress Note Seen and evaluated. Toradol 60 mg IM, hydrocodone 7.5/325 one tab by mouth. Amoxicillin 1000 mg by mouth. Topical lidocaine solution given. Discharged home with return precautions. Patient verbalize understanding instructions and agreement with plan. Departure Impression Primary Impression: Dental caries Additional Impression: Dental abscess Disposition: 01 HOME, SELF-CARE Condition: Stable Departure-Patient Inst. Decision time for Depature: 11:40 Referrals: NO,LOCAL PHYSICIAN (PCP/Family) Primary Care Physician Patient Instructions: Dental Pain (DC), Tooth Abscess (DC) Add. Discharge Instructions: All discharge instructions reviewed with patient and/or family. Voiced underst anding. You may take ibuprofen 800 mg every 8 hours as needed for pain. Take prescribed pain medicine as directed. If you're not taking the prescribed pain medicine, you may take Tylenol/acetaminophen, 1000 mg every 8 hours as needed for pain. Do not take with prescribed pain medicine as they both have acetaminophen in them. Use topical numbing medicine once 12 to area of concern every one to 2 hours as needed for pain. Try not to swallow juice as this may numb the throat some. This is not dangerous but may be irritating. Follow-up with your dentist as scheduled. Return for worse pain, fever, vomiting, weakness, breathing problems or other concerns as needed. You may gargle with salt water 2 or 3 times daily to help reduce infection as well. Scripts Hydrocodone Bit/Acetaminophen (Hydrocodone/Acetaminophen 5/325mg Tablet) 1 Tab Tab 1 EACH PO Q4-6HR PRN for PAIN-MODERATE MDD 10 for 3 Days, #10 TAB Prov: LUMA POTTER MD 10/13/18 Amoxicillin (Amoxicillin) 500 Mg Capsule 500 MG PO TID, #21 CAP 0 Refills Prov: LUMA POTTER MD 10/13/18 LUMA POTTER MD Oct 13, 2018 11:37
[2018-10-13] MEDS ORDERED: AMOX500C2 PO (11:44)
[2018-10-13] MEDS ORDERED: ACHD5005 PO (11:44)
[2018-10-13 11:59] VITALS: BP 145/82
== END 2018-10-13 11:59 | disposition home or self-care (01) ==
LOC: EDUNIT# 09:07 → ER 09:09
DX: K04.7 Periapical abscess without sinus (principal); K02.9 Dental caries, unspecified; F43.10 Post-traumatic stress disorder, unspecified; F41.9 Anxiety disorder, unspecified; F17.210 Nicotine dependence, cigarettes, uncomplicated; Z90.49 Acquired absence of other specified parts of digestive tract
CPT/HCPCS: 99284

== ENCOUNTER 2018-12-14 21:26 | Emergency (ER) | payer MEDICARE, MEDICAID ==
[~2018-12-14] VITALS: Ht 152.4 cm; Wt 62.6 kg
[~2018-12-14 21:26] MED LIST: ACHD5005 PO; AMOX500C2 PO; BUSPIRONE 15 MG; DESVENLAFAXINE; PRAZOSIN 2 MG; TRAZODONE 50MG TABLETS
--- NOTE | 2018-12-14 21:43 | ED Lower Extremity ---
General Stated Complaint: R FOOT TOE PAIN Source: patient Exam Limitations: no limitations History of Present Illness Date Seen by Provider: Dec 14, 2018 Time Seen by Provider: 21:41 Initial Comments To ER with right great toe pain after dropping a shelf on it at about 4 PM. Onset: this evening Severity: moderate Pain/Injury Location: right 1st toe Method of Injury: direct blow Modifying Factors: Worse With Movement Allergies and Home Medications Allergies Coded Allergies: No Known Drug Allergies (Unverified , 10/13/18) Home Medications Amoxicillin 500 Mg Capsule, 500 MG PO TID Prescribed by: LUMA POTTER on 10/13/18 1144 Cephalexin 500 Mg Capsule, 500 MG PO TID Prescribed by: PILAR WILLIS on 12/14/18 2200 Hydrocodone Bit/Acetaminophen 1 Tab Tab, 1 EACH PO Q4-6HR PRN for PAIN-MODERATE Prescribed by: LUMA POTTER on 10/13/18 1144 Patient Home Medication List Home Medication List Reviewed: Yes Review of Systems Constitutional: see HPI EENTM: see HPI Respiratory: no symptoms reported Cardiovascular: no symptoms reported Genitourinary: no symptoms reported Musculoskeletal: see HPI Skin: no symptoms reported Psychiatric/Neurological: No Symptoms Reported Past Aejldec-Cxbaky-Pcjnws Hx Patient Social History Type Used: Cigarettes Recent Foreign Travel: No Contact w/Someone Who Travel: No Recent Hopitalizations: No Immunizations Up To Date Tetanus Booster (TDap): Unknown Seasonal Allergies Seasonal Allergies: No Past Medical History Surgeries: Yes (CERVIX) Appendectomy, Gallbladder Respiratory: No Cardiac: No Neurological: No Genitourinary: No Gastrointestinal: No Musculoskeletal: No Endocrine: No HEENT: No Cancer: No Psychosocial: Yes Anxiety, PTSD, Depression Integumentary: No Family Medical History No Pertinent Family Hx Physical Exam Vital Signs Vital Signs - First Documented 12/14/18 21:33 Temp 98.1 Pulse 94 Resp 18 B/P (MAP) 115/74 (88) Pulse Ox 97 O2 Delivery Room Air Capillary Refill : Height, Weight, BMI Height: 5'0" Weight: 146lbs. oz. 66.645534sk; BMI Method:Stated General Appearance: WD/WN, no apparent distress HEENT: PERRL/EOMI, normal ENT inspection Respiratory: no respiratory distress, no accessory muscle use Hips: bilateral hip non-tender, bilateral hip normal inspection, bilateral hip normal range of motion Legs: bilateral leg non-tender, bilateral leg normal inspection, bilateral leg normal range of motion Knees: bilateral knee non-tender, bilateral knee normal inspection, bilateral knee normal range of motion Ankles: bilateral ankle non-tender, bilateral ankle normal inspection, bilateral ankle normal range of motion Feet: right foot pain, right foot soft tissue tenderness, right foot other (there is a subungual hematoma on the right great toe greater than 50% of the nail surface area.) Progress/Results/Core Measures Results/Orders My Orders Orders - PILAR WILLIS APRN Foot, Right, 2 View (12/14/18 21:40) Lidocaine 2% Injection 20 Ml (Xylocaine (12/14/18 22:15) Lidocaine 1% Inj 20 Ml (Xylocaine 1% Inj (12/14/18 22:02) Lidocaine 1% Inj 20 Ml (Xylocaine 1% Inj (12/14/18 22:15) Medications Given in ED Current Medications Medications Dose Ordered Sig/Marcie Route Start Time Stop Time Status Last Admin Dose Admin Lidocaine HCl 4 ml ONCE ONCE INJ 12/14/18 22:15 12/14/18 22:16 DC 12/14/18 22:17 4 ML Vital Signs/I&O 12/14/18 21:33 Temp 98.1 Pulse 94 Resp 18 B/P (MAP) 115/74 (88) Pulse Ox 97 O2 Delivery Room Air Departure Communication (Admissions) 2214-digital block using 2.5 mL of 2% lidocaine without epinephrine done due to patient complaining of severe pain. Only half of this was accomplished because she was unable to tolerate the second half without kicking her foot. 2220-pt was unable to tolerate the cautery due to the pain. She also refused the lidocaine injection. Nothing more to offer her. Impression Primary Impression: Fracture of toe Qualified Codes: S92.424A - Nondisplaced fracture of distal phalanx of right great toe, initial encounter for closed fracture Additional Impression: Subungual hematoma Disposition: 01 HOME, SELF-CARE Condition: Stable Departure-Patient Inst. Decision time for Depature: 21:43 Referrals: NO,LOCAL PHYSICIAN (PCP/Family) Primary Care Physician Patient Instructions: Toe Fracture Add. Discharge Instructions: 1. Antibiotics as directed 2. Return to ER for any concerns 3. Follow-up with your doctor next week. Scripts Cephalexin (Keflex) 500 Mg Capsule 500 MG PO TID, #21 CAP Prov: PILAR WILLIS APRN 12/14/18 PILAR WILLIS APRN Dec 14, 2018 21:43
[2018-12-14] MEDS ORDERED: CEPH-507 PO (22:00)
[2018-12-14] MEDS ORDERED: LIDOCAINE 1% INJ 20 ML 20 ML VIAL ONE (22:02)
--- NOTE | 2018-12-14 22:02 | Diagnostic Imaging Report ---
INDICATION: Injury, right foot pain. EXAMINATION: Two views of the right foot were obtained. FINDINGS: No fracture, dislocation or other abnormality. IMPRESSION: Normal right foot. Dictated by: Dictated on workstation # [id number]
[2018-12-14] MEDS ORDERED: LIDOCAINE 2% 20 ML (XYLOCAINE) VIAL INJ ONE (22:15)
[2018-12-14] MEDS ORDERED: LIDOCAINE 1% INJ 20 ML 20 ML VIAL INJ ONE (22:15)
[2018-12-14] MEDS ORDERED: RX-HYDROCODONE/APAP 5/325 MG #4 TAB PK PO PRN (22:30)
[2018-12-14 22:46] VITALS: BP 115/74
== END 2018-12-14 22:47 | disposition home or self-care (01) ==
LOC: EDUNIT# 21:26 → ER 21:27
DX: S92.424A Nondisplaced fracture of distal phalanx of right great toe, initial encounter for closed fracture (principal); S90.211A Contusion of right great toe with damage to nail, initial encounter; F41.9 Anxiety disorder, unspecified; F32.9 Major depressive disorder, single episode, unspecified; F43.10 Post-traumatic stress disorder, unspecified; Z90.49 Acquired absence of other specified parts of digestive tract; W20.8XXA Other cause of strike by thrown, projected or falling object, initial encounter
CPT/HCPCS: 73620